=== PATIENT | female | born 1950 | race Caucasian/White ===

== ENCOUNTER 2018-12-14 22:36 | Emergency (ER) | payer OTHER ==
[~2018-12-14] VITALS: Ht 180.3 cm; Wt 81.6 kg
== END 2018-12-15 12:42 | disposition home or self-care (01) ==
LOC: ER 22:36
DX: S42.292A Other displaced fracture of upper end of left humerus, initial encounter for closed fracture (principal); S80.02XA Contusion of left knee, initial encounter; W18.39XA Other fall on same level, initial encounter; Y93.89 Activity, other specified; Y92.89 Other specified places as the place of occurrence of the external cause; Y99.8 Other external cause status

== ENCOUNTER 2018-12-18 15:17 | Outpatient (CLI) | payer OTHER | END 2018-12-18 16:13 | disposition home or self-care (01) | LOC: LAB 15:17 | DX: D64.89 Other specified anemias (principal); E88.89 Other specified metabolic disorders; N39.0 Urinary tract infection, site not specified; D68.8 Other specified coagulation defects; Z22.322 Carrier or suspected carrier of Methicillin resistant Staphylococcus aureus; I49.8 Other specified cardiac arrhythmias; Z76.89 Persons encountering health services in other specified circumstances ==

== ENCOUNTER 2018-12-24 10:30 | Inpatient (IN) | payer OTHER ==
[~2018-12-24] VITALS: Ht 233.7 cm; Wt 81.6 kg
[2018-12-25] MEDS ORDERED: AMPICILLIN TRI500 MG PO (08:14)
[2018-12-25] MEDS ORDERED: SIDEROL TABLET1 EACH PO (08:15)
[2018-12-25] MEDS ORDERED: CELECOXIB200 MG PO (08:15)
== END 2018-12-25 13:38 | disposition home or self-care (01) | DRG 494 ==
LOC: CIR.AMB 10:30 → SURH 20:07
PROVIDERS: ADMIT Orthopaedic Surgery
PROC: 0LQ20ZZ Repair Left Shoulder Tendon, Open Approach (ICD-10-PCS; 2018-12-24)
PROC: 0PSD04Z Reposition Left Humeral Head with Internal Fixation Device, Open Approach (ICD-10-PCS; principal; 2018-12-24 10:00)
DX: S42.252A Displaced fracture of greater tuberosity of left humerus, initial encounter for closed fracture (principal); S46.012A Strain of muscle(s) and tendon(s) of the rotator cuff of left shoulder, initial encounter; W18.39XA Other fall on same level, initial encounter

== ENCOUNTER 2019-01-02 12:25 | Outpatient (CLI) | payer OTHER ==
[~2019-01-02 12:25] MED LIST: AMPICILLIN TRI500 MG PO; CELECOXIB200 MG PO; SIDEROL TABLET1 EACH PO
== END 2019-01-02 16:13 | disposition home or self-care (01) ==
LOC: RAD 12:25
DX: S42.242D 4-part fracture of surgical neck of left humerus, subsequent encounter for fracture with routine healing (principal)

== ENCOUNTER → 2019-01-23 | Outpatient (CLI) | payer OTHER | END | disposition home or self-care (01) | LOC: RAD 11:26 | DX: S42.242D 4-part fracture of surgical neck of left humerus, subsequent encounter for fracture with routine healing (principal) ==